=== PATIENT | male | born 1965 | race American Indian/Alaskan Native ===

== ENCOUNTER 2018-04-23 10:07 | Day surgery (SDC) | payer OTHER ==
[2018-04-23] MEDS ORDERED: NACL 0.9% 1000 ML 1,000 ML IV SCH (12:00)
--- NOTE | 2018-04-23 12:49 | Anesthesia Consultation ---
Anesthesia Consult and Med Hx Date of service: 04/23/18 - Airway Anesthetic Teeth Evaluation: Good ROM Head & Neck: Adequate Mental/Hyoid Distance: Adequate Mallampati Class: Class II Intubation Access Assessment: Probably Good - Pulmonary Exam CTA: Yes - Cardiac Exam Cardiac Exam: RRR - Pre-Operative Health Status ASA Pre-Surgery Classification: ASA2 Proposed Anesthetic Plan: MAC - Central Nervous System Hx Back Pain: Yes (Chronic)
--- NOTE | 2018-04-23 12:49 | Anesthesia Day of Surgery ---
Anesthesia Day of Surgery - Day of Surgery Patient Examined: Yes Patient H&P Reviewed: Yes Patient is NPO: Yes
[2018-04-23] MEDS ORDERED: DIPRIVAN 10 MG/ML IV ONE ×2 (13:16→13:17)
[2018-04-23] MEDS ORDERED: XYLOCAINE 2% INFILTRATI ONE (13:17)
[2018-04-23] MEDS ORDERED: WATER FOR IRRIG STERILE ONE (13:18)
--- NOTE | 2018-04-23 14:03 | Operative Report ---
Operative Report Operative Report: Date of procedure: 04/23/2018 Procedure: Colonoscopy with cold biopsy Attending physician: Marc Mendez MD Supervisor Graphite: Marc Mendez MD Indication: Patient is a 52-year-old male who presents for colonoscopy. He has a history of rectal bleeding and rectal pain He has a past history of constipation. A colonoscopy serves to evaluate patients symptoms so that treatment may be directed based on the findings. Consent: Informed consent was obtained after advising the patient and family regarding nature of this procedure, its indications, potential benefits as well as possible complications including but not limited to bleeding perforation and adverse reaction to medication, infection as well as other cardiopulmonary complications. An informed written and verbal consent was then obtained after due opportunity was provided for questions and answers. Monitoring: Patient was monitored continuously with pulse oximetry and electrocardiographic recordings as well as blood pressure recordings. Vital signs remained stable throughout this procedure with no untoward events. Preoperative assessment: Patient was assessed immediately prior to this procedure for capacity to tolerate monitored anesthesia care and moderate sedation as well as general anesthesia. Patient's ASA classification is 2, Mallampati class is 2, Hyomental distance is 3. Instrument: [employer] videocolonoscope. Medications: Propofol given intravenously in divided doses. For details please refer to anesthesia records. Description of procedure: Patient was placed in the left lateral decubitus position after achieving sedation, a digital rectal examination was performed following which the colonoscope was introduced into the anal verge and advanced to the cecum which was identified by the cecal valve, the appendiceal orifice, as well as by the cecal strap and direct transillumination. The colonoscope was subsequently withdrawn with careful inspection of all mucosal surfaces. Patient tolerated this procedure well and was subsequently taken to the recovery room. The following findings were noted. Findings: Patient had residual stool in the colon, which was irrigated. The rest of the colon to the cecum was normal. On the retroflex view at the anal verge, patient had friable irregular edematous mucosa projecting out of the surface of the anal lining in an exophytic pattern with a somewhat papilliform appearance and areas of hypopigmentation. Several biopsies were obtained for histopathology. The endoscopic appearance raises concerns for possible condyloma acuminata. Patient tolerated the procedure well with no untoward events. Impression: Abnormal appearing anal verge mucosa status post biopsies Internal hemorrhoids. Plan: Follow-up pathology report Daily sitz baths as needed. High-fiber diet. Patient to use stool softeners as needed. MiraLAX 17 g in 8 ounce glass of water has been prescribed. Patient is scheduled for further outpatient follow-up. Additional terminations may be made depending on the pathology report. If pathology suggests condyloma, patient will be scheduled for sigmoidoscopy with ablation of anal condyloma.
--- NOTE | 2018-04-23 14:03 | Discharge Summary ---
Short Stay Discharge Plan Activity: advance as tolerated Weight Bearing Status: Weight Bear as Tolerated Diet: regular Additional Instructions: Post Sedation D/C Instructions When you return home you may resume your regular diet unless otherwise directed. -Go directly home from the hospital and rest quietly. You may resume normal activities tomorrow. -Do NOT drive, return to work, operate any machinery or make any important personal or business decisions today. -Do NOT drink any alcohol or take nerve or sleeping drugs. They add to the effects of the medicine still present in your body. NO ASPIRIN OR NSAIDS FOR 2-3 DAYS CALL OFFICE IN 1-2 WEEKS IF YOU HAVE NOT RECEIVED CALL FROM THEM TO FOLLOW UP ON BIOPSY FINDINGS Follow up with: PRIMARY CARE [Primary Care Provider] - 7 Days
--- NOTE | 2018-04-23 14:07 | Post Anesthesia Evaluation ---
- Post Anesthesia Evaluation Patient Participated: Yes Airway Patent: Yes Stable Respiratory Function: Yes Temp > 96.8F: Yes Pain Manageable: Yes Adequeate Hydration: Yes Anesthesia Complications: No
[2018-04-23 14:19] VITALS: BP 138/90
== END 2018-04-23 10:08 | disposition home or self-care (01) ==
LOC: GIO 10:07
PROVIDERS: ATTEND Internal Medicine Gastroenterology
DX: K62.82 Dysplasia of anus (principal); K64.8 Other hemorrhoids; E78.00 Pure hypercholesterolemia, unspecified; Z96.643 Presence of artificial hip joint, bilateral; Z98.890 Other specified postprocedural states; Z79.899 Other long term (current) drug therapy
CPT/HCPCS: 45380; 88305; J2704; J7030